=== PATIENT | female | born 1980 | race Caucasian/White ===

== ENCOUNTER 2016-06-10 09:23 | Emergency (ER) | payer MEDICAID ==
[~2016-06-10] VITALS: Ht 152.4 cm; Wt 64.5 kg
[~2016-06-10 09:23] MED LIST: ACET-2158 PO; FERR27TA PO; HYDROCORTISONE28 G1 TP; IRON1TAB78 PO; PNV1TABL43 PO; PREN-46 PO
[2016-06-10 09:27] VITALS: Ht 152.4 cm; Wt 64.5 kg
[2016-06-10] MEDS ORDERED: SOD CHLORIDE 0.9% 1,000 ML IV STA (10:00)
[2016-06-10] MEDS ORDERED: METOCLOPRAMIDE 10 MG INJ IV ONE (10:00)
[2016-06-10] MEDS ORDERED: ACETAMINOPHEN 325 MG TAB PO STA (10:00)
[2016-06-10] MEDS ORDERED: DIPHENHYDRAMINE 50 MG INJ IV ONE (10:00)
--- NOTE | 2016-06-10 10:19 | ERD ---
ER Documentation Chief Complaint Date/Time DATE: 06/10/16 TIME: 10:08 Chief Complaint bilateral ear pain and intermittent fevers for 1 week. no ob complaints HPI Patient is a 35-year-old female, approximately 12 weeks , A1, who presents to the emergency department with numerous concerns generalized body aches, bilateral ear pain, intermittent fevers. Patient states that she developed her body aches approximately 7 days ago. Patient has been taking Tylenol which does help with the pain. Last dose of Tylenol was yesterday. Patient also reports intermittent tactile fevers and chills. She states that she developed bilateral ear pain 2 days ago. Patient denies any ear discharge. Patient also reporting nausea and vomiting daily for the past 2 months. Patient states that she's been taking Reglan which does help with her symptoms. Patient states that her nausea and vomiting is only in the morning. Patient reports being able to tolerate by mouth fluids and has normal appetite. Patient denies any chest pain, shortness of breath, cough, throat pain or headaches. Patient denies any pain with urination, urgency, frequency, pelvic pain, abdominal pain , vaginal bleeding or increased vaginal discharge. +Sick contacts, and son. No recent travel. Patient denies receiving the flu vaccination this year. She has an appointment with her RECREATION PROGRAM SPECIALIST scheduled in 1 week from today. ROS All systems reviewed and are negative except as per history of present illness. Medications Home Meds Active Scripts Cephalexin* (Keflex*) 500 Mg Capsule, 500 MG PO BID for 7 Days, CAP Prov:SYLVIE CASTAÑEDA PA-C 06/10/16 Acetaminophen* (Tylophen*) 500 Mg Capsule, 2 CAP PO Q8H Y for PAIN AND OR ELEVATED TEMP, #20 CAP Prov:SYLVIE CASTAÑEDA PA-C 06/10/16 Metoclopramide* (Reglan*) 10 Mg Tablet, 10 MG PO Q6 Y for NAUSEA AND/OR VOMITING , #15 TAB Prov:SYLVIE CASTAÑEDA PA-C 06/10/16 Reported Medications Hydrocortisone/Aloe Vera (Hydrocortisone 1% Ointment) 28 Gm Oint..gm., 28 GM TP 07/31/13 Iron,Carbonyl/Vit C/Vit B12/Fa (IRON 100 PLUS TABLET) 1 Each Tablet, 1 EACH PO 07/31/13 Vit/Fe Fumarate/Fa* ( Vitamin Tablet*) 1 Tab Tablet, 1 TAB PO 07/31/13 Acetaminophen (TYLENOL 325 MG TAB) 325 Mg Tab, 325 MG PO prn 06/03/13 Vit #108/Iron/Fa ( ONE TABLET) 1 Each Tablet, 1 EACH PO DAILY 06/03/13 Ferrous Sulfate (Iron) 1 Tab Tablet, 1 TAB PO DAILY 06/03/13 Allergies Allergies: Coded Allergies: No Known Drug Allergies (Verified Allergy, Unknown, 01/03/14) PMhx/Soc History of Surgery: Yes () Anesthesia Reaction: No Hx Neurological Disorder: No Hx Respiratory Disorders: No Hx Cardiac Disorders: No Hx Psychiatric Problems: No Hx Miscellaneous Medical Probl: No Hx Alcohol Use: No Hx Substance Use: No Hx Tobacco Use: No Smoking Status: Never smoker FmHx Family History: No diabetes Physical Exam Vitals Vital Signs Date Time Temp Pulse Resp B/P Pulse Ox O2 Delivery O2 Flow Rate FiO2 06/10/16 12:23 98.2 06/10/16 09:27 98.8 89 18 100/63 98 Physical Exam GENERAL: Well-developed, well-nourished female. Appears in no acute distress. HEAD: Normocephalic, atraumatic. No deformities or ecchymosis. EYE: Pupils equal, round, and reactive to light. EOMs intact. No conjunctival erythema. No scleral icterus. No eye discharge. ENT: External ear without any masses or tenderness. Auditory canals clear bilaterally. TM visualized bilaterally, non-erythematous, non-bulging. Nasal mucosa pink with no discharge. Oropharynx is pink without any tonsillar erythema or exudates. No uvula deviation. No kissing tonsils. NECK: Supple. No lymphadenopathy or thyromegaly. No meningismus. Trachea midline. LUNG: Clear to auscultation bilaterally. No rhonchi, wheezing, rales or coarse breath sounds. HEART: Regular rate and rhythm. No murmurs, rubs or gallops. ABDOMEN: Soft and nondistended. Palpation of the suprapubic region. Positive bowel sounds in all four quadrants. No rebound tenderness, no guarding. (-) McBurney's point tenderness. No CVA tenderness. : deferred BACK: No midline tenderness. Tender to palpation of the bilateral lumbar paraspinalis muscles. EXTREMITIES: Equal pulses bilaterally. No peripheral clubbing, cyanosis or edema. No unilateral leg swelling. NEUROLOGIC: Alert and oriented to person, place and time. Moving all four extremities. 5/5 strength in all extremities. Normal speech. Steady gait. (-) Brudzinski sign- no flexion of the hips and knees noted with neck flexion. (-) Kernigs sign- patient able to extend knee to 180 degrees with hip flexion, no hamstring stiffness noted. SKIN: Normal color. Warm and dry. No rashes or lesions. Result Diagram: 06/10/16 1020 06/10/16 1020 Results 24 hrs Laboratory Tests Test 06/10/16 10:20 06/10/16 10:56 Alanine Aminotransferase (ALT/SGPT) 88IU/L Albumin 3.7g/dl Albumin/Globulin Ratio 0.94 Alkaline Phosphatase 133IU/L Anion Gap 16 Aspartate Amino Transf (AST/SGOT) 41IU/L Basophils # 0.010^3/ul Basophils % 0.2% Blood Morphology Comment Blood Urea Nitrogen 9mg/dl Calcium Level 8.6mg/dl Carbon Dioxide Level 24mmol/L Chloride Level 99mmol/L Creatinine 0.56mg/dl Direct Bilirubin 0.00mg/dl Eosinophils # 0.010^3/ul Eosinophils % 0.1% Globulin 3.90g/dl Glucose Level 122mg/dl Hematocrit 35.6% Hemoglobin 12.2g/dl Indirect Bilirubin 0.5mg/dl Lymphocytes # 1.810^3/ul Lymphocytes % 12.6% Mean Corpuscular Hemoglobin 30.1pg Mean Corpuscular Hemoglobin Concent 34.2g/dl Mean Corpuscular Volume 88.0fl Mean Platelet Volume 7.1fl Monocytes # 1.010^3/ul Monocytes % 6.8% Neutrophils # 11.710^3/ul Neutrophils % 80.3% Nucleated Red Blood Cells # 0.010^3/ul Nucleated Red Blood Cells % 0.0/100WBC Platelet Count 02523^3/UL Potassium Level 3.7mmol/L Red Blood Count 4.0410^6/ul Red Cell Distribution Width 14.9% Sodium Level 135mmol/L Total Bilirubin 0.5mg/dl Total Protein 7.6g/dl White Blood Count 14.610^3/ul Bedside Urine Blood 3+ Bedside Urine Glucose (UA) Negative Bedside Urine Ketones (LAB) Negative Bedside Urine Leukocyte Esterase (L Trace Bedside Urine Nitrite (LAB) Positive Bedside Urine Protein (LAB) 2+ Bedside Urine pH (LAB) 6.5 Current Medications Medications (Trade) Dose Ordered Sig/Nitish Route PRN Reason Start Time Stop Time Status Last Admin Dose Admin Sodium Chloride (NS) 1,000 ml @ 1,000 mls/hr Q1H STAT IV 06/10/16 10:00 06/10/16 10:59 DC 06/10/16 10:25 Acetaminophen (Tylenol Tab) 650 mg ONCE STAT PO 06/10/16 10:00 06/10/16 10:03 DC 06/10/16 10:25 Diphenhydramine HCl (Benadryl) 50 mg ONCE ONCE IV 06/10/16 10:00 06/10/16 10:03 DC 06/10/16 10:25 Metoclopramide HCl (Reglan) 10 mg ONCE ONCE IV 06/10/16 10:00 06/10/16 10:03 DC 06/10/16 10:25 Procedures/MDM ED COURSE: The patient was stable throughout ED course. I kept the patient and/or family informed of laboratory and diagnostic imaging results throughout the ED course. MEDICATIONS GIVEN: IV fluids, IV Reglan, IV Benadryl, Tylenol by mouth Patient tolerated medication well with no adverse reactions. MEDICAL DECISION MAKING: Patient is a 35-year-old approximately 12 weeks female who presents with numerous concerns of generalized body aches, intermittent fevers, bilateral ear pain, nausea and vomiting. Patient denied any pelvic pain, abdominal pain, vaginal bleeding. Patient reported positive sick contacts. Vitals signs were reviewed. Patient was afebrile. Patient was not hypoxic. ENT exam was normal. Cardiac exam was normal. Lung exam was normal. Given that the patient denied any vaginal bleeding, OB ultrasound was not obtained. Urine dip showed trace leukocyte esterase and positive nitrates, 3+ blood. CBC showed no evidence of severe anemia. Patient's WBC count was noted to be elevated at 14.6. This may be due to her ongoing vomiting and UTI. CMP showed no evidence of electrolyte abnormalities, severe acidosis, alkalosis, renal failure. No elevated platelet count. Patient is not hypertensive. Total bili is < 1.2. AST mildly elevated at 88. Low suspicion for HEELP syndrome. Given these findings, the patients presentation is most consistent with influenza vs viral syndrome. I have a much lower clinical concern for acute coronary syndrome, pneumothorax, pneumonia, acute otitis media, strep pharyngitis, UTI, pyelonephritis. Low suspicion for spontaneous or hyperemesis gravidarum. She was advised to continue Reglan for her nausea and vomiting. Patient advised to hydrate well. Given urine dip findings, the patient will be treated with a course of antibiotics for a UTI. Low suspicion for nephrolithiasis or pyelonephritis. PRESCRIPTIONS: Tylenol for fever/pain control Reglan for nausea/ vomiting Keflex for UTI DISCHARGE: At this time, patient is stable for discharge and outpatient management. I have instructed the patient to follow-up with his/her primary care physician in 1-2 days. If symptoms persist, patient may need to see a specialist for further examinations and testing. I have instructed the patient to promptly return to the ER at any time for any new or worsening symptoms including increased increased pain, fever, nausea, vomiting, numbness, shortness of breath, weakness , ongoing wheezing, retractions or LOC. The patient and/or family expressed understanding of and agreement with this plan. All questions were answered. Home care instructions were provided. Departure Diagnosis: Primary Impression: Nausea and vomiting during Additional Impression: Influenza Condition: Stable Patient Instructions: Influenza (Flu) and Referrals: [facility] YOU HAVE RECEIVED A MEDICAL SCREENING EXAM AND THE RESULTS INDICATE THAT YOU DO NOT HAVE A CONDITION THAT REQUIRES URGENT TREATMENT IN THE EMERGENCY DEPARTMENT. FURTHER EVALUATION AND TREATMENT OF YOUR CONDITION CAN WAIT UNTIL YOU ARE SEEN IN YOUR DOCTORS OFFICE WITHIN THE NEXT 1-2 DAYS. IT IS YOUR RESPONSIBILITY TO MAKE AN APPOINTMENT FOR FOLOW-UP CARE. IF YOU HAVE A PRIMARY DOCTOR --you should call your primary doctor and schedule an appointment IF YOU DO NOT HAVE A PRIMARY DOCTOR YOU CAN CALL OUR PHYSICIAN REFERRAL HOTLINE AT IF YOU CAN NOT AFFORD TO SEE A PHYSICIAN YOU CAN CHOSE FROM THE FOLLOWING [facility] CLINICS [facility] [address] [facility] [address] [facility]. [facility] [address] [facility] [address] [facility] [address] [facility]. [facility] [address] [facility]. [facility] YOU HAVE RECEIVED A MEDICAL SCREENING EXAM AND THE RESULTS INDICATE THAT YOU DO NOT HAVE A CONDITION THAT REQUIRES URGENT TREATMENT IN THE EMERGENCY DEPARTMENT. FURTHER EVALUATION AND TREATMENT OF YOUR CONDITION CAN WAIT UNTIL YOU ARE SEEN IN YOUR DOCTORS OFFICE WITHIN THE NEXT 1-2 DAYS. IT IS YOUR RESPONSIBILITY TO MAKE AN APPOINTMENT FOR FOLOW- CARE. IF YOU HAVE A PRIMARY DOCTOR --you should call your primary doctor and schedule and appointment IF YOU DO NOT HAVE A PRIMARY DOCTOR YOU CAN CALL OUR PHYSICIAN REFERRAL HOTLINE AT . IF YOU CAN NOT AFFORD TO SEE A PHYSICIAN YOU CAN CHOSE FROM THE FOLLOWING [facility] INSTITUTIONS: [facility] [address] [place] [address] [facility] [address] [place] [address] [facility] [address] [place] [address] RECREATION PROGRAM SPECIALIST [place] [address] [facility] [address] [place], [place] [phone] OFFICE FAX [facility] [address] [place], [place] [phone] [facility] [address] [place] [address] JUAN NOVAK [address] [address] [facility] [address] [address] [place], [place] [phone] [facility] [address] [place] [address] [address] [facility] [address] - NOELLE CLAY [address], [place] [phone] DR VANG, PAUL [address] [facility] [address], [place] [address] DR SMITH, FARID [address] [place] [address] Additional Instructions: Llame al doctor/OB doctor MAANA y ryan keith MARCY PARA DENTRO DE 1-2 VALENCIA.Dgale a la secretaria que nosotros le instruimos hacer esta marcy.Avise o llame si pegureo condicin se empeora antes de la marcy. Regresa aqui si peor o no mejor.' Gely mucho liquidos. Billie Tylenol para dolor. Billie Reglan para nausea/vomito. SYLVIE CASTAÑEDA PA-C Jun 10, 2016 10:19
[2016-06-10 10:46] LABS: BASOPHILS % 0.2 % (0.0-2.0); EOSINOPHILS % 0.1 % (0.0-7.0); HEMATOCRIT 35.6 % (37.0-47.0); HEMOGLOBIN 12.2 g/dl (12.0-16.0); LYMPHOCYTES # 1.8 10^3/ul (0.8-2.9); LYMPHOCYTES % 12.6 % (15.0-51.0); MEAN CORPUSCULAR HEMOGLOBIN 30.1 pg (29.0-33.0); MEAN CORPUSCULAR HGB CONC 34.2 g/dl (32.0-37.0); MEAN PLATELET VOLUME 7.1 fl (7.4-10.4); MONOCYTES % 6.8 % (0.0-11.0); NEUTROPHIL # 11.7 10^3/ul (1.6-7.5); NEUTROPHILS % 80.3 % (39.0-77.0); PLATELET COUNT 322 10^3/UL (140-440); RED BLOOD COUNT 4.04 10^6/ul (4.20-5.40); RED CELL DISTRIBUTION WIDTH 14.9 % (11.5-14.5); UNCORRECTED WBC 14.6 10^3/ul (4.8-10.8); WHITE BLOOD COUNT 14.6 10^3/ul (4.8-10.8)
[2016-06-10 10:49] LABS: CONDITION 1; LH ANALYZER COMMENTS 1
[2016-06-10 10:56] LABS: URINE BLOOD (Dip) POC 3+ (NEGATIVE)
[2016-06-10 10:56] LABS: ALBUMIN 3.7 g/dl (3.3-4.9)
[2016-06-10 10:57] LABS: POTASSIUM 3.7 mmol/L (3.5-5.1)
[2016-06-10 10:59] LABS: ALBUMIN/GLOBULIN RATIO 0.94; BILIRUBIN,INDIRECT 0.5 mg/dl (0-1.1); BILIRUBIN,TOTAL 0.5 mg/dl (0.2-1.3); CREATININE 0.56 mg/dl (0.44-1.00); TOTAL PROTEIN 7.6 g/dl (6.1-8.1)
[2016-06-10 11:00] LABS: CALCIUM 8.6 mg/dl (8.4-10.2)
[2016-06-10] MEDS ORDERED: ACET500C5 PO (11:52)
[2016-06-10] MEDS ORDERED: METO10TA92 PO (11:52)
[2016-06-10] MEDS ORDERED: CEPH-443 PO (11:57)
[2016-06-10 12:23] VITALS: TEMP 98.2
== END 2016-06-10 12:24 | disposition home or self-care (01) ==
LOC: FTE 09:23
DX: O21.9 Vomiting of pregnancy, unspecified (principal); O99.511 Diseases of the respiratory system complicating pregnancy, first trimester; J11.1 Influenza due to unidentified influenza virus with other respiratory manifestations; Z3A.12 12 weeks gestation of pregnancy
CPT/HCPCS: 80053; 81003; 85025; J1200; J2765; J7030; Z7610; 36415; 96374; 96375

== ENCOUNTER 2016-08-27 21:42 | Outpatient (CLI) | payer MEDICAID ==
[~2016-08-27] VITALS: Ht 152.4 cm; Wt 71.4 kg
[~2016-08-27 21:42] MED LIST changes: +ACET500C5 PO; +CEPH-443 PO; +METO10TA92 PO
[2016-08-27 22:15] VITALS: BP 101/57; PULSE 75; RESP 18
[2016-08-27] MEDS ORDERED: LACTATED RINGER'S 1,000 ML IV ONE (23:30)
[2016-08-27] MEDS ORDERED: TERBUTALINE 1 MG/ML INJ SC ONE (23:30)
[2016-08-27 23:33] LABS: ADD UMIC YES; URINE BILIRUBIN (Dip) NEGATIVE (NEGATIVE); URINE BLOOD (Dip) 3+ (NEGATIVE); URINE COLOR LT. YELLOW (YELLOW); URINE GLUCOSE (Dip) NEGATIVE (NEGATIVE); URINE KETONES (Dip) NEGATIVE (NEGATIVE); URINE LEUKOCYTE ESTERASE (Dip) TRACE (NEGATIVE); URINE NITRITE (Dip) NEGATIVE (NEGATIVE); URINE TOTAL PROTEIN (Dip) NEGATIVE (NEGATIVE); URINE UROBILINOGEN (Dip) 0.2 E.U./dL (0.1-1.0)
[2016-08-27 23:45] LABS: SQUAMOUS EPITHELIAL CELL,UR RARE
[2016-08-27] MEDS ORDERED: LACTATED RINGER'S 1,000 ML IV SCH (23:50)
--- NOTE | 2016-08-28 01:10 | RADRPT ---
PROCEDURE: Limited OB ultrasound CLINICAL INDICATION: labor TECHNIQUE: Limited sonographic evaluation of the gravid uterus was performed to assess the cervica l length COMPARISON: 09/10/2015. FINDINGS: Single live intrauterine with cardiac heart rate of 143 beats per minute is identifi ed. Fetus is in a breech presentation. Placenta is anterior Cervix measures 4.4 cm in length. IMPRESSION: Single live intrauterine with a cervical length of 4.4 cm. RPTAT: HMVK .Magdaleno Britt MD, Date Time Electronically viewed and signed by .Magdaleno Britt MD, MD on 08/28/2016 01:10 .K/
--- NOTE | 2016-08-28 01:59 | QN ---
Documentation Comment [facility]/Dr Llanes 35 y.o. A1 with an IUP at 24 weeks. Pt reports lower abdominal cramping since 2029. No bleeding or leaking. Pt 2 prior deliveries were at 37 weeks and 33 weeks. PMHx: none. PSJHX: C/S x 2, 2010, 2013. Cholecystectomy 2013. NKDA. BP 101/57. T=98.1. NST: baseline 130 bpm with accels to 160 bpm. No decels. Rare UC's. U/A negative. CX: 4.4 cm long,closed. A: IUP at 24 weeks. False labor. Plan: after IV hydration and terbutaline the pt reports feeling much improved and has no more pain. PTL precautions reviewed with the pt. NOELLE NOEL MD Aug 28, 2016 01:58
--- NOTE | 2016-08-28 02:05 | TRIAGE ---
OB Triage Datetime Report Generated by CPN: 08/28/2016 02:05 Datetime: 08/28/2016 01:44 Stage of : OB Triage Datetime: 08/28/2016 01:20 Stage of : OB Triage Heart Rate FHR Baseline Rate: 140 Monitor Mode: External US FHR Baseline Changes: No Baseline Change Variability: Moderate 6-25 bpm Category: Category I Comments: Appropriate for gestational age Datetime: 08/28/2016 00:34 Monitor Mode: External Quality: Mild Pattern: Normal: <= 5 Contractions in 10 Minutes Resting Tone [place]: Relaxed Heart Rate FHR Baseline Rate: 140 Monitor Mode: External US FHR Baseline Changes: No Baseline Change Variability: Moderate 6-25 bpm Accelerations: 10X10 Category: Category I Pain Assessment Pain Scale: 6 Pain Presence: Intermittent Pain Type: Cramping Pain Location: Abdomen Datetime: 08/27/2016 22:50 Stage of : OB Triage Datetime: 08/27/2016 22:30 Stage of : OB Triage Monitor Mode: External Resting Tone [place]: Relaxed Contraction Comments: unable to monitor ucs Heart Rate FHR Baseline Rate: 140 Monitor Mode: External US Variability: Moderate 6-25 bpm Category: Category I Datetime: 08/27/2016 22:08 Time of Arrival: 08/27/2016 21:33 EGA: 24.0 Arrived By: Wheelchair Arrived From: Home Chief Complaint: w/ hx c/s x2 and PTD at 33 wks w/ c/o lower abd cramping Movement: Present Contractions: Irregular Time Contractions Began: 08/27/2016 20:30 Contractions: Q5-10 Rupture of Membranes: Denies Vaginal Bleeding: None Vaginal Discharge: Denies Recent Sexual Intercouse: Denies Abdominal Trauma: Not Applicable Patient Complaints: Cramping Initial Plan: EFM,CALL MD Datetime: 08/27/2016 21:53 Maternal Assessment Level of Consciousness: Fully Conscious Headache: Denies Blurred Vision: No Nausea/Vomiting: Denies RUQ Epigastric Pain: Denies Facial Edema: None Labor Evaluation Frequency: placed Monitor Mode: External Monitor Mode: External US Comments: FHT 150 Pain Assessment Pain Scale: 9 Pain Presence: Intermittent Pain Type: Cramping Pain Location: Abdomen Datetime: 08/27/2016 21:47 Vaginal Exam Membrane Status: Intact
== END 2016-08-28 02:04 | disposition home or self-care (01) ==
LOC: OBT 21:42 → L-D 21:42 → OBT 08-28 02:04
PROVIDERS: ATTEND Obstetrics & Gynecology
DX: O47.02 False labor before 37 completed weeks of gestation, second trimester (principal); Z3A.24 24 weeks gestation of pregnancy
CPT/HCPCS: 36415; 76817; 81001; 96360; 96372; J3105; J7120; Z7500; 81003; G0463

== ENCOUNTER 2016-11-21 20:19 | Outpatient (CLI) | payer MEDICAID ==
[~2016-11-21] VITALS: Ht 157.5 cm; Wt 70.1 kg
[~2016-11-21 20:19] MED LIST changes: -ACET-2158 PO; -ACET500C5 PO; -CEPH-443 PO; -HYDROCORTISONE28 G1 TP; -IRON1TAB78 PO; -PNV1TABL43 PO
[2016-11-21 21:04] VITALS: BP 91/53; PULSE 72; RESP 18
[2016-11-21 21:27] LABS: ADD SCAN DIFF NO
[2016-11-21 21:29] LABS: BASOPHILS % 0.1 % (0.0-2.0); EOSINOPHILS % 0.3 % (0.0-7.0); HEMATOCRIT 33.6 % (37.0-47.0); HEMOGLOBIN 11.7 g/dl (12.0-16.0); LYMPHOCYTES # 2.9 10^3/ul (0.8-2.9); LYMPHOCYTES % 29.6 % (15.0-51.0); MEAN CORPUSCULAR HEMOGLOBIN 32.3 pg (29.0-33.0); MEAN CORPUSCULAR HGB CONC 34.8 g/dl (32.0-37.0); MEAN CORPUSCULAR VOLUME 92.8 fl (82.0-101.0); MEAN PLATELET VOLUME 9.3 fl (7.4-10.4); MONOCYTE # 0.8 10^3/ul (0.3-0.9); MONOCYTES % 7.8 % (0.0-11.0); NEUTROPHILS % 61.4 % (39.0-77.0); PLATELET COUNT 263 10^3/UL (140-415); RED BLOOD COUNT 3.62 10^6/ul (4.20-5.40); RED CELL DISTRIBUTION WIDTH 12.9 % (11.5-14.5); WHITE BLOOD COUNT 9.8 10^3/ul (4.8-10.8)
[2016-11-21 21:33] LABS: ADD UMIC YES; UR BILIRUBIN (Dip) NEGATIVE (NEGATIVE); UR BLOOD (Dip) 3+ (NEGATIVE); UR COLOR LT. YELLOW (YELLOW); UR GLUCOSE (Dip) NEGATIVE (NEGATIVE); UR KETONES (Dip) NEGATIVE (NEGATIVE); UR LEUKOCYTE ESTERASE (Dip) 1+ (NEGATIVE); UR NITRITE (Dip) NEGATIVE (NEGATIVE); UR TOTAL PROTEIN (Dip) NEGATIVE (NEGATIVE); UR UROBILINOGEN (Dip) 0.2 E.U./dL (0.1-1.0)
[2016-11-21 21:35] LABS: UR CLARITY SL HAZY (CLEAR)
[2016-11-21 21:55] LABS: UR SQUAMOUS EPITHELIAL CELL FEW
[2016-11-21 21:56] LABS: UR BACTERIA RARE
--- NOTE | 2016-11-21 21:59 | RADRPT ---
PROCEDURE: OB ultrasound for biophysical profile CLINICAL INDICATION: Biophysical profile. . TECHNIQUE: Multiple sonographic images of the pelvis were obtained. Transabdominal views are obta ined. COMPARISON: 11/02/2016 FINDINGS: Single intrauterine gestation. Presentation: Cephalic. Placenta: Anterior. No evidence of placental abruption. No evidence of placenta previa. breathing movement = 2/2 tone = 2/2 motion = 2/2 NAVARRO = 2/2 NAVARRO = 11.5 cm heart rate: 161 beats per minute IMPRESSION: Single intrauterine gestation. Biophysical profile 01/10 RPTAT: AADD .Tomas Trent MD, MD Date Time Electronically viewed and signed by .Tomas Trent MD, on 11/21/2016 21:59 .B/
--- NOTE | 2016-11-21 23:00 | TRIAGE ---
OB Triage Datetime Report Generated by CPN: 11/21/2016 23:00 Datetime: 11/21/2016 20:30 Time of Arrival: 11/21/2016 20:12 EGA: 36.2 Arrived By: Wheelchair Arrived From: Home Chief Complaint: w/ hx c/s x2 w/ c/o dizziness and SOB when lying down x 2 days and occas mil d cramping and back pain today Movement: Present Contractions: Occasional Time Contractions Began: 11/21/2016 12:00 Rupture of Membranes: Denies Vaginal Bleeding: None Vaginal Discharge: Present Recent Sexual Intercouse: Denies Abdominal Trauma: Not Applicable Patient Complaints: Cramping; Back Pain; Shortness of Breath; Dizziness Time Provider Notified: 11/21/2016 20:30 Provider Notified: Dr Hernandez Initial Plan: EFM,UA,CBC,BPP Datetime: 08/27/2016 22:08 EGA: 24.0
--- NOTE | 2016-11-22 06:22 | PN ---
Triage Information Date/Time Weeks of Gestation 36 2/7 : 4 Para: 2 Diabetes: none Hypertention: none Additional information 36 Year-old with SIUP at 36 2/7 wks presents with a chief complaint of dizziness and SOB when is lying down . She has been receiving her care with Dr. Llanes. She states good movement. She denies nausea, vomiting, shortness of breath, chest pain, and abdominal pain between contractions, headache, visual changes, vaginal bleeding or LOF. Physical Exam: General: Patient appears well, alert and oriented, NAD, appropriate mood and affect. No SOB ABD: gravid, soft, non-tender. Back: No CVA tenderness (B/L) LE: No clubbing, cyanosis, edema, thigh or calf tenderness bilaterally FHT: 135 bpm , moderate variability with acceleration, no deceleration-category I Contractions: Occasional Objective Vital Signs Date Time Temp Pulse Resp B/P Pulse Ox O2 Delivery O2 Flow Rate FiO2 11/21/16 21:04 98.2 72 18 91/53 98 Room Air Heart Rate: 140's Contractions: 6-10 Minutes Apart Results/Medications Result Diagram: 11/21/162119 Results 24 hrs Laboratory Tests Test 11/21/16 20:30 11/21/16 21:20 Urine Color LT. YELLOW Urine Clarity SL HAZY Urine pH 6.5 Urine Specific [place] <=1.005 L Urine Ketones NEGATIVE Urine Nitrite NEGATIVE Urine Bilirubin NEGATIVE Urine Urobilinogen 0.2 E.U./dL Urine Leukocyte Esterase 1+ H Urine Microscopic RBC 2-5 Urine Microscopic WBC 0-2 Urine Squamous Epithelial Cells FEW Urine Bacteria RARE Urine Hemoglobin 3+ H Urine Glucose NEGATIVE Urine Total Protein NEGATIVE White Blood Count 9.8 # Red Blood Count 3.62 L Hemoglobin 11.7 L Hematocrit 33.6 L Mean Corpuscular Volume 92.8 Mean Corpuscular Hemoglobin 32.3 Mean Corpuscular Hemoglobin Concent 34.8 Red Cell Distribution Width 12.9 Platelet Count 263 Mean Platelet Volume 9.3 # Neutrophils % 61.4 Lymphocytes % 29.6 Monocytes % 7.8 Eosinophils % 0.3 Basophils % 0.1 Nucleated Red Blood Cells % 0.0 Neutrophils # 6.0 Lymphocytes # 2.9 Monocytes # 0.8 Eosinophils # 0.0 Basophils # 0.0 Nucleated Red Blood Cells # 0.0 Assessment/Plan 36 Year-old with SIUP at 36 2/7 wks c/o SOB and dizziness. Her exam is normal, no SOB during evaluation and triage observation was noted. CBC performed which was nml.. She had occasional ucs, pt not feeling those. FHR: No sign of metabolic acidosis- Category I. Reactive NST. BPP: 10/10. Symptoms and sign of labor, preeclampsia, kick count discussed with patient, she voiced understanding. All of her questions answered. Patient was discharged home in stable condition with the appropriate discharge instructions provided. I would like patient to have close follow-up with her primary physician or outpatient clinic in 1-2 days or return to the ER for worsening symptoms or any other urgent concerns. ZKAIA BAILEY Nov 22, 2016 06:21
== END 2016-11-21 22:45 | disposition home or self-care (01) ==
LOC: OBT 20:19 → L-D 20:19 → OBT 22:45
PROVIDERS: ATTEND Obstetrics & Gynecology
DX: O26.893 Other specified pregnancy related conditions, third trimester (principal); R06.02 Shortness of breath; O09.523 Supervision of elderly multigravida, third trimester; Z3A.36 36 weeks gestation of pregnancy
CPT/HCPCS: 76818; 81001; 85025

== ENCOUNTER 2016-12-05 03:04 | Inpatient (IN) | payer MEDICAID ==
[~2016-12-05] VITALS: Ht 154.9 cm; Wt 70.8 kg
[~2016-12-05 03:04] MED LIST changes: -METO10TA92 PO
[2016-12-05 03:46] VITALS: BP 99/63; PULSE 97; RESP 18; Ht 154.9 cm; Wt 70.8 kg
[2016-12-05] MEDS ORDERED: OXYTOCIN 30 UNITS/LR 500 ML IV PRN ×3 (04:00→17:00)
[2016-12-05] MEDS ORDERED: MISOPROSTOL 200 MCG TAB PR PRN ×3 (04:00→17:00)
[2016-12-05] MEDS ORDERED: METHYLERGONOVINE 0.2 MG INJ IM PRN ×3 (04:00→17:00)
[2016-12-05] MEDS ORDERED: CARBOPROST 250 MCG INJ IM PRN ×3 (04:00→17:00)
[2016-12-05] MEDS: LACTATED RINGER'S 1,000 ML IV SCH ×5 (04:26→16:54)
[2016-12-05 05:21] LABS: BASOPHILS % 0.3 % (0.0-2.0); EOSINOPHILS % 0.2 % (0.0-7.0); HEMATOCRIT 34.2 % (37.0-47.0); HEMOGLOBIN 11.9 g/dl (12.0-16.0); LYMPHOCYTES # 2.5 10^3/ul (0.8-2.9); LYMPHOCYTES % 29.1 % (15.0-51.0); MEAN CORPUSCULAR HEMOGLOBIN 32.4 pg (29.0-33.0); MEAN CORPUSCULAR HGB CONC 34.8 g/dl (32.0-37.0); MEAN CORPUSCULAR VOLUME 93.2 fl (82.0-101.0); MEAN PLATELET VOLUME 9.8 fl (7.4-10.4); MONOCYTE # 0.7 10^3/ul (0.3-0.9); NEUTROPHIL # 5.3 10^3/ul (1.6-7.5); NEUTROPHILS % 61.6 % (39.0-77.0); PLATELET COUNT 270 10^3/UL (140-415); RED BLOOD COUNT 3.67 10^6/ul (4.20-5.40); RED CELL DISTRIBUTION WIDTH 12.9 % (11.5-14.5); WHITE BLOOD COUNT 8.6 10^3/ul (4.8-10.8)
[2016-12-05 05:22] LABS: ADD SCAN DIFF NO
--- NOTE | 2016-12-05 05:46 | TRIAGE ---
OB Triage Datetime Report Generated by CPN: 12/05/2016 05:46 Datetime: 12/05/2016 04:45 Comments: MONITORS ON, PT IN FBC2 Datetime: 12/05/2016 04:30 Stage of : OB Triage Datetime: 12/05/2016 04:00 Labor Evaluation Frequency: IRREGULAR Monitor Mode: External Duration (sec)2399: 60-100 Quality: Mild Pattern: Normal: <= 5 Contractions in 10 Minutes Resting Tone [place]: Relaxed Heart Rate FHR Baseline Rate: 125 Monitor Mode: External US FHR Baseline Changes: No Baseline Change Variability: Moderate 6-25 bpm Accelerations: 15X15 Decelerations: None Category: Category I Datetime: 12/05/2016 03:42 Stage of : OB Triage Datetime: 12/05/2016 03:18 Stage of : OB Triage Time of Arrival: 12/05/2016 04:45 EGA: 38.0 Arrived By: Wheelchair Arrived From: Home Chief Complaint: C/O INCISIONAL PAIN, VOMITED X2/ ITCHING X 3-4 DAYS Movement: Present Contractions: Denies/Absent Rupture of Membranes: Denies Vaginal Bleeding: None Vaginal Discharge: Denies Recent Sexual Intercouse: Denies Abdominal Trauma: Not Applicable Patient Complaints: None (Annotations: Data stored by CPN on behalf of user) Additional Patient Complaints: HX OF CHOLESTASIS FOR FIRST 2 PREGNACIES/ HX OF GALLBLADDER SURGERY IN 2013/ C/S IN 2010 AND 2013 Time Provider Notified: 12/05/2016 03:42 Provider Notified: DR MEZA Initial Plan: CALL HILARIO CARLISLE Maternal Assessment Level of Consciousness: Fully Conscious DTR's/Clonus: DTRs 2+; No Clonus Headache: Denies Blurred Vision: No Respiratory Effort: Unlabored; Regular Rhythm; Equal Expansion Breath Sounds, Left: Clear and Equal Breath Sounds, Right: Clear and Equal Nausea/Vomiting: Denies RUQ Epigastric Pain: Denies Lower Extremities Edema: None Degree: None Upper Extremities Edema: None Degree: None Facial Edema: None Temperature Route: Oral Fall Risk Assessment History of Falling: (0) No Secondary Diagnosis: (0) No Ambulatory Aid: (0) Bedrest/Nurse Assist IV Therapy: (0) No Gait: (0) Normal/Bedrest/Immobile Mental Status: (0) Oriented to Own Ability Fall Score: 0 Fall Risk Score Definition: No Risk: No action required Monitor Mode: External Monitor Mode: External US Pain Assessment Pain Scale: 8 Pain Presence: Intermittent Pain Type: Ache Pain Location: Abdomen Datetime: 11/21/2016 22:15 Stage of : OB Triage Labor Evaluation Frequency: 5-10 Monitor Mode: External Quality: Mild Pattern: Normal: <= 5 Contractions in 10 Minutes Resting Tone [place]: Relaxed Heart Rate FHR Baseline Rate: 130 FHR Baseline Changes: No Baseline Change Variability: Moderate 6-25 bpm Accelerations: 15X15 Decelerations: None Category: Category I Pain Assessment Pain Scale: 2 Pain Presence: Intermittent Pain Type: Cramping Pain Location: Abdomen Datetime: 11/21/2016 21:30 Stage of : OB Triage Datetime: 11/21/2016 21:05 Stage of : OB Triage Labor Evaluation Frequency: 2-10 Monitor Mode: External Duration (sec)2399: 30-50 Quality: Mild Pattern: Normal: <= 5 Contractions in 10 Minutes Resting Tone [place]: Relaxed Datetime: 11/21/2016 20:37 Stage of : OB Triage Maternal Assessment Level of Consciousness: Fully Conscious Headache: Denies Blurred Vision: No Respiratory Effort: Unlabored Breath Sounds, Left: Clear and Equal Breath Sounds, Right: Clear and Equal Nausea/Vomiting: Denies RUQ Epigastric Pain: Denies Facial Edema: None Labor Evaluation Frequency: placed Monitor Mode: External Resting Tone [place]: Relaxed Monitor Mode: External US Comments: FHT 145 Pain Assessment Pain Scale: 2 Pain Presence: Intermittent Pain Type: Cramping Pain Location: Abdomen; Back Datetime: 11/21/2016 20:30 EGA: 36.0 Datetime: 08/27/2016 22:08 EGA: 23.5
[2016-12-05 05:54] LABS: INR 0.85; PARTIAL THROMBOPLASTIN TIME 25.4 Sec (25.0-35.0); PROTIME 11.6 Sec (12.2-14.2); PT RATIO 0.9
[2016-12-05] MEDS ORDERED: BUTORPHANOL 2 MG INJ IV PRN ×2 (06:00)
[2016-12-05 06:10] LABS: BARBITURATES Negative (NEGATIVE); BENZODIAZEPINES Negative (NEGATIVE); CANNABINOIDS Negative (NEGATIVE); COCAINE Negative (NEGATIVE); OPIATES Negative (NEGATIVE)
[2016-12-05] MEDS ORDERED: CITRIC ACID/SODIUM CITRATE 15 ML CUP PO ONE (08:00)
[2016-12-05] MEDS ORDERED: CEFAZOLIN 2 GM/50 ML (PMX) 50 ML IVPB ONE (08:00)
[2016-12-05] MEDS ORDERED: OXYTOCIN 10 UNIT INJ ONE (12:41)
[2016-12-05] MEDS ORDERED: ONDANSETRON 4 MG INJ ONE (12:41)
[2016-12-05] MEDS ORDERED: METOCLOPRAMIDE 10 MG INJ ONE (12:41)
[2016-12-05] MEDS ORDERED: OXYTOCIN 30 UNITS/LR 500 ML IV ONE (12:41)
[2016-12-05] MEDS ORDERED: morphine SULFATE/PF (10 MG/10 ML) INJ ONE (12:41)
[2016-12-05] MEDS ORDERED: EPHEDrine SULFATE 50 MG/5 ML SYG ONE (12:41)
[2016-12-05] MEDS: OXYTOCIN 30 UNITS/LR 500 ML IV SCH ×5 (14:27→20:32)
[2016-12-05] MEDS ORDERED: HYDROmorphONE 1 MG/ML SYG IV PRN ×2 (14:30)
[2016-12-05] MEDS ORDERED: EPHEDrine SULFATE 50 MG/5 ML SYG IV PRN (14:30)
[2016-12-05] MEDS ORDERED: NALOXONE (0.4 MG/ML) INJ IV PRN (14:30)
[2016-12-05] MEDS ORDERED: morphine 2 MG INJ IV PRN ×2 (14:30)
[2016-12-05] MEDS ORDERED: morphine SULFATE/PF (10 MG/10 ML) INJ SPINAL ONE (14:30)
[2016-12-05] MEDS ORDERED: ONDANSETRON 4 MG INJ IV PRN (14:30)
[2016-12-05] MEDS ORDERED: DIPHENHYDRAMINE 50 MG INJ IV PRN (14:30)
[2016-12-05] MEDS: KETOROLAC 30 MG INJ IV PRN (15:12)
--- NOTE | 2016-12-05 15:44 | OPR ---
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 temperature 97.6 pulse 70 respirations 6 blood pressure 109/60 Head ears nose and throat Lungs clear to P and A Heart normal sinus rhythm no murmur Abdomen fundal height 36 cm from symphysis pubis heart rate category 1 Pelvic examination deferred Extremity no edema no varicose Impression Intrauterine 38 weeks gestation history of 2 previous in labor Procedure date Dec 05, 2016 Procedure(s) Repeat Performed by: DARBY CAIN MD Assisting provider: TANI TINOCO MD Anesthesiologist: MAI GARCIA MD Pre-procedure diagnosis 38 weeks history of 2 previous in labor Anesthesia Type: spinal Procedure Description Under satisfactory [spine] anesthesia, the patient was prepped and draped and placed in a supine position, tilted to the left. Pfannenstiel incision was made , carried through the subcutaneous tissue. Bleeders brought under control with electrocautery. Fascia incised to the length of the incision. Rectus muscles from the fascia, divided midline. Peritoneum exposed, entered through a transverse incision. Exploration of abdomen revealed gravid uterus. Normal- appearing tubes and ovaries bladder flap was developed. Transverse incision was made in the lower segment of the uterus. Amniotic sac ruptured clear. amniotic fluid noted. Light baby girl delivered from vertex presentation Nasal oropharyngeal suction was performed. The baby was handed to the team for immediate attention. placenta was delivered manually intact. Uterine cavity was cleaned with wet sponge and drainage established. Uterus closed in 2 layers using Monocryl #1 [] in continuous fashion. Peritoneal cavity irrigated with warm saline. Sponge, needle and instrument count reported to be correct. Abdominal peritoneum closed with [2 0 chromic catgut continuously. Rectus muscle approximated with interrupted 2-0 chromic []. Fascia closed with [#1 PDS] , cutaneous tissue approximated with several interrupted 2-0 chromic catgut skin closed with elian. Estimated blood loss [] 600 mL. Urine bag contained 200 []mL of clear urine patient tolerated procedure well and transferred to recovery room in good condition Post-Procedure Findings: Live Baby girl Apgars [9] and [8], weight 3036[], position [LOP], [] presentation vertex , Complications: None Pt Condition post procedure: stable Physician Certification I, the undersigned physician, hereby certify that I have discussed the procedure described in this consent form with this patient (or the patient's legal enrollment representative), including: * The risk and benefits of the procedure; * Any adverse reactions that may reasonably be expected to occur; * Any alternative efficacious methods of treatment which may be medically viable ; * The potential problems that may occur during recuperation; * Potential for blood transfusion and associated risks/benefits; and * Any research or economic interest I may have regarding this treatment. I further certify that the patient/legally responsible person was encouraged to ask question and that all questions were answered. DARBY CAIN MD Dec 05, 2016 15:32
--- NOTE | 2016-12-05 15:49 | HP ---
Date/Time of Note Date/Time of Note DATE: 12/05/16 TIME: 15:45 OB - History Hx of Present Free Text/Dictation 35 years old female 4 para 2 T1 PET 1 SAB L2 Admitted to [facility] at 38 weeks gestation with a history of 2 previous in labor being prepared to undergo repeat transverse low cervical section. Chief Complaint: 38 weeks previous in labor Estimated Due Date: Dec 19, 2016 : 4 Para: 2 Spontaneous : 1 Care: Limited Care Obstetrical Complications: Gestational Diabetes Medical Complications: None Past Family/Social History * Past Medical, Surgical, Family and Obstetric Histories reviewed from chart. Rubella: immune RPR/VDRL: Negative GBS Status: Negative HBsAG: Negative OB Admission Exam Vital Signs Vital Signs Vital Signs Date Time Temp Pulse Resp B/P Pulse Ox O2 Delivery O2 Flow Rate FiO2 12/05/16 03:46 97.7 97 18 99/63 Room Air Physical Exam HEENT: WNL Heart: Rhythm Normal Lungs: Clear, Equal Abdomen: WNL Extremities: Normal Reflexes: Normal Station: -2 Membranes: Intact Heart Rate: 130's Accelerations: Accelerations Present Varibility: Moderate Contractions on Admission: 6-10 Minutes Apart Intensity: Moderate Last 72 hours Lab Results CBC & BMP 12/05/16 04:26 OB Assessment/Plan Reason for admission: other (38 weeks history of 2 previous C- section in labor) Plan: Section DARBY CAIN MD Dec 05, 2016 15:49
[2016-12-05] MEDS ORDERED: OXYTOCIN 30 UNITS/LR 500 ML IV SCH (16:31)
[2016-12-05 16:54] VITALS: BP 117/73; PULSE 62; RESP 18
[2016-12-05] MEDS ORDERED: ACETAMINOPHEN/CODEINE #3 TAB PO PRN ×2 (17:00)
[2016-12-05] MEDS ORDERED: OXYCODONE/ACETAMINOPHEN (5/325) TAB PO PRN ×2 (17:00)
[2016-12-05] MEDS ORDERED: CEFAZOLIN 1 GM/50 ML (PMX) 50 ML IVPB SCH ×2 (17:00)
[2016-12-05 17:30] VITALS: BP 116/72; PULSE 68; RESP 18
[2016-12-05] MEDS: LANOLIN 7 GM TUBE TOP PRN (18:01)
[2016-12-05 20:00] VITALS: BP 116/65; PULSE 71; RESP 19
[2016-12-06] VITALS: BP 111/59; PULSE 71; RESP 19
[2016-12-06] MEDS: OXYTOCIN 30 UNITS/LR 500 ML IV SCH ×7 (01:18→23:46)
[2016-12-06] MEDS: KETOROLAC 30 MG INJ IV PRN ×2 (01:32→10:15)
[2016-12-06 04:00] VITALS: BP 102/60; PULSE 78; RESP 19
[2016-12-06 06:56] LABS: ADD SCAN DIFF NO
[2016-12-06 07:03] LABS: BASOPHILS % 0.2 % (0.0-2.0); EOSINOPHILS # 0.1 10^3/ul (0.0-0.5); EOSINOPHILS % 0.4 % (0.0-7.0); HEMATOCRIT 29.4 % (37.0-47.0); LYMPHOCYTES % 23.5 % (15.0-51.0); MEAN CORPUSCULAR HEMOGLOBIN 31.7 pg (29.0-33.0); MEAN CORPUSCULAR VOLUME 93.3 fl (82.0-101.0); MEAN PLATELET VOLUME 9.7 fl (7.4-10.4); MONOCYTE # 0.9 10^3/ul (0.3-0.9); MONOCYTES % 6.9 % (0.0-11.0); NEUTROPHIL # 8.7 10^3/ul (1.6-7.5); NEUTROPHILS % 68.4 % (39.0-77.0); PLATELET COUNT 216 10^3/UL (140-415); RED BLOOD COUNT 3.15 10^6/ul (4.20-5.40); RED CELL DISTRIBUTION WIDTH 12.9 % (11.5-14.5); WHITE BLOOD COUNT 12.8 10^3/ul (4.8-10.8)
[2016-12-06 08:00] VITALS: BP 99/69; PULSE 82; RESP 18
[2016-12-06] MEDS: SENNA/DOCUSATE NA (8.6MG/50MG) TAB PO SCH ×2 (08:30→21:30)
[2016-12-06] MEDS: LACTATED RINGER'S 1,000 ML IV SCH ×4 (08:31→23:46)
--- NOTE | 2016-12-06 13:17 | PN ---
Date/Time of Note Date/Time of Note DATE: 12/06/16 TIME: 13:16 OB Subjective Subjective Subjective Post day 1 Afebrile vital signs stable abdomen soft incision dry bowel sounds present extremities no lochia moderate ambulation encouraged DARBY CAIN MD Dec 06, 2016 13:16
[2016-12-06 17:00] VITALS: BP 103/57; PULSE 78; RESP 18
[2016-12-06] MEDS: IBUPROFEN 600 MG TAB PO SCH ×2 (17:13→23:46)
[2016-12-06 20:30] VITALS: BP 133/55; PULSE 70; RESP 18
[2016-12-07 04:00] VITALS: BP 105/54; PULSE 69; RESP 17
[2016-12-07] MEDS: OXYTOCIN 30 UNITS/LR 500 ML IV SCH ×2 (04:31→06:19)
[2016-12-07] MEDS: IBUPROFEN 600 MG TAB PO SCH ×4 (05:32→23:56)
[2016-12-07] MEDS: LACTATED RINGER'S 1,000 ML IV SCH (06:19)
[2016-12-07 07:30] VITALS: BP 107/50; PULSE 70; RESP 19
[2016-12-07] MEDS: SENNA/DOCUSATE NA (8.6MG/50MG) TAB PO SCH ×2 (10:05→21:48)
[2016-12-07 16:00] VITALS: BP 100/60; PULSE 70; RESP 19
--- NOTE | 2016-12-07 18:24 | PN ---
Date/Time of Note Date/Time of Note DATE: 12/07/16 TIME: 18:23 OB Subjective Subjective Subjective Post day 2 Afebrile vital signs are stable patient walking comfortably her abdomen is soft good bowel sounds had normal bowel movement extremities negative plan of a.m. discharge discussed with the patient DARBY CAIN MD Dec 07, 2016 18:24
[2016-12-07 20:40] VITALS: BP 105/51; PULSE 80; RESP 17
[2016-12-08] MEDS: LANOLIN 7 GM TUBE TOP PRN (01:53)
[2016-12-08 04:00] VITALS: BP 99/59; PULSE 68; RESP 18
[2016-12-08] MEDS: IBUPROFEN 600 MG TAB PO SCH ×3 (06:01→16:56)
[2016-12-08 08:00] VITALS: BP 110/50; PULSE 64; RESP 19
[2016-12-08] MEDS: SENNA/DOCUSATE NA (8.6MG/50MG) TAB PO SCH (08:59)
[2016-12-08] MEDS ORDERED: DIPHTH/TET/ACEL PERTUSS (ADULT) 0.5 ML VIAL IM* ONE (09:00)
--- NOTE | 2016-12-08 10:39 | PD.PPDC ---
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
--- NOTE | 2016-12-08 10:42 | DS ---
Date/Time of Note Date/Time of Note DATE: 12/08/16 TIME: 10:39 Discharge Summary Admission/Discharge Info Admit Date/Time Dec 05, 2016 at 03:42 Discharge Date/Time December 08, 2016 at 1035 Discharge Diagnosis Post section day 3 Patient Condition: Good Procedures Repeat Hx of Present Illness Term with history of previous suspected cholestasis of in labor Hospital Course Satisfactory recovery patient discharged home with follow-up instruction to be seen at the clinic in 4 days to discontinue elina Home Meds Reported Medications Vit #108/Iron/Fa ( ONE TABLET) 1 Each Tablet, 1 EACH PO DAILY 06/03/13 Ferrous Sulfate (Iron) 1 Tab Tablet, 1 TAB PO DAILY 06/03/13 Follow-up Plan instructions given recommended to make appointment for check and removal of elina in 4 days Primary Care Provider Care Physician No Primary Time spent on discharge: < 30 minutes DARBY CAIN MD Dec 08, 2016 10:42
[2016-12-08 16:46] LABS: CHENODEOXYCHOLIC ACID 10.2 umol/L (< OR = 3.1); CHOLIC ACID 16.8 umol/L (< OR = 1.8); DEOXYCHOLIC ACID 4.6 umol/L (< OR = 2.4); TOTAL BILE ACIDS 31.6 umol/L (< OR = 6.8)
== END 2016-12-08 17:30 | disposition home or self-care (01) | DRG 765 ==
LOC: OBT 03:04 → L-D 03:05 → OBT 03:42 → L-D 03:42 → PP1 16:54
PROVIDERS: ADMIT Obstetrics & Gynecology; ATTEND Obstetrics & Gynecology
PROC: 4A1HX4Z Monitoring of Products of Conception, Cardiac Electrical Activity, External Approach (ICD-10-PCS; 2016-12-05)
PROC: 10D00Z1 Extraction of Products of Conception, Low, Open Approach (ICD-10-PCS; principal; 2016-12-05 12:30)
DX: O34.211 Maternal care for low transverse scar from previous cesarean delivery (principal); K83.1 Obstruction of bile duct; O24.420 Gestational diabetes mellitus in childbirth, diet controlled; O26.62 Liver and biliary tract disorders in childbirth; Z3A.38 38 weeks gestation of pregnancy; Z37.0 Single live birth
CPT/HCPCS: 36415; 80307; 83789; 85025; 85610; 85730; 86592; 86703; 86850; 86900; 86901; 87340; 88307; 90715; 96360; 99464; G0463; J0595; J0690; J1885; J2274; J2405; J2590; J2765; J7120